=== PATIENT | female | born 1965 | race Caucasian/White ===

== ENCOUNTER 2020-07-11 17:03 | Inpatient (IN) ==
--- NOTE | 2020-07-11 17:06 | ERNOTE ---
Integumentary HPI - Narrative Date of Service: 07/11/20 - General Presenting Symptoms: other - burn Time Seen by Provider: 07/11/20 17:05 Source: patient Exam Limitations: no limitations - Immun/Allergies/Home Medications Allergies/Adverse Reactions: Allergies Allergy/AdvReac Type Severity Reaction Status Date / Time No Known Allergies Allergy Verified 02/11/20 10:31 Home Medications: HOME MEDICATIONS ascorbic acid (vitamin C) 500 mg capsule,extended release 500 mg PO DAILY 01/24/19 [Last Taken Unknown] calcium carbonate 500 mg calcium (1,250 mg) tablet 500 mg PO DAILY 01/24/19 [Last Taken Unknown] cholecalciferol (vitamin D3) 125 mcg (5,000 unit) tablet 10,000 unit PO DAILY tab 01/24/19 [Last Taken Unknown] vitamin B12 500 mcg-folic acid 400 mcg tablet 1 tab PO DAILY 01/24/19 [Last Taken Unknown] atorvastatin 20 mg tablet 20 mg PO DAILY #90 tab 10/03/19 [Last Taken Unknown] citalopram 40 mg tablet See Rx Instructions .ROUTE .COMPLEX #90 unspecified 10/03/19 [Last Taken Unknown] levothyroxine 200 mcg tablet See Rx Instructions .ROUTE .COMPLEX #90 unspecified 10/03/19 [Last Taken Unknown] - History of Present Illness Narrative: The patient is a 54 year old female who presents for motta which has been present since just [employer]. There are associated symptoms of skin blistering. The patient reports pain to bilateral feet, 9/10. There are none alleviating factors. There are aggravating factors of palpation or ambulation. Previous treatments have included: none. The past medical history includes: depression and hypothyroid. The social history is positive for current tobacco use. The patient has had no known ill contacts. Patient states she was cleaning out fryers while working at [employer] and [employer], wearing tennis shoes when hot grease spilt on both feet. Patient removed tennis shoes and socks prior to arrival. Patient unsure of last tetanus vaccine. Review of Systems - Review of Systems Constitutional: Present: no symptoms reported. Absent: recent illness, fever, fatigue EYE: Present: no symptoms reported ENT: Present: no symptoms reported. Absent: ear pain, nasal drainage, sore throat Respiratory: Present: no symptoms reported. Absent: shortness of breath, cough Cardiology: Present: no symptoms reported. Absent: chest pain Gastrointestinal/Abdominal: Present: no symptoms reported. Absent: nausea, vomiting, diarrhea Genitourinary: Present: no symptoms reported. Absent: dysuria Musculoskeletal: Present: no symptoms reported Skin: Present: other - burn All Other Systems: All systems neg except as marked Medical History (Last Reviewed 07/11/20 @ 17:19 by TAVO Callejas) Depression Onset Date: 10/16/13 trial with celexa for $ Morbid obesity Onset Date: 10/16/13 work on diet and [email or web address]. Tobacco abuse Onset Date: 10/16/13 spent 3 min. talking to her about beh. modification, reasons why she smokes, etc. Cervical malignant neoplasm Onset Date: Unknown Hypothyroidism Onset Date: 10/16/13 Surgical History: Surgical History (Last Reviewed 07/11/20 @ 17:20 by TAVO Callejas) H/O section Onset Date: Unknown x3 History of conization of cervix Onset Date: Unknown History of hysterectomy Onset Date: Unknown d/t menorrhagia History of tubal ligation Onset Date: Unknown Family History: Family History (Last Reviewed 07/11/20 @ 17:20 by TAVO Callejas) Mother Cancer breast cancer that spread to whole body Social History: (Last Reviewed 07/11/20 @ 17:20 by TAVO Callejas) Social History: Marital status: lives independently: Yes household members: spouse number of children: 3 current occupational status: unemployed current occupation: cook-unemployed current occupational exposures/hazards: Yes Highest education level completed: some college, no degree Service: No Tobacco: Smoking Status: Current every day smoker tobacco type: cigarettes Smoking cigarettes per day: 10.0 Smoking packs per day: 0.5 Alcohol: alcohol intake: current details: rare Dietary Habits: caffeine: Yes Physical Exam - Physical Exam General Appearance: Present: wd/wn, alert, moderate distress Head Exam: Present: normal inspection, no evidence of injury Eye Exam: Normal inspection: bilateral Neck: Present: normal inspection Respiratory: Present: no respiratory distress, normal breath sounds, no accessory muscle use, lungs clear Cardiovascular/Chest: Present: regular rate, rhythm, no murmur Peripheral Pulses: N=norm/S=strong/W=weak/B=bound/A=absent: Dorsalis-pedis (R): Normal, Dorsalis-pedis (L): Normal Extremity Exam: Present: extremity edema - 1+ bilateral lower extremities Neurological Exam: Present: alert, oriented, normal mood/affect, no motor/sensory deficits Skin Exam: Present: normal color, warm/dry, other - 2nd degree burn noted to right dorsal and lateral great toe extending to lateral foot with overlying blister, 2,3,4 toe with surrounding erythema with central areas that are non- blanching appearing to be 3rd degree, right lateral 5th toe extending to foot 2nd degree with blistering and areas that are blanched appearing to be 3rd degree- left foot great toe extending to medial foot 2nd degree with blistering, areas of skin that are blanched appearing to be 3rd degree, 2,3,4,5 dorsal toes left with outer areas erythema with central areas blanched appearing to be 3rd degree, right ankle posterior and lateral erythema, left ankle posterior erythema Progress - Date and Time Seen: Date and Time: 07/11/20 17:[address] [facility] burn center via email with patient's phone with consent for consult. 07/11/20 17:37 customer support consultant on burn unitAnastasia, debridement to burn wounds with deroofing of blisters, vasline gauze and bacitracin dressing to be changes daily then burn unit will follow up next week, will contact patient for outpatient follow up. 07/11/20 19:28 Areas of blister deroofed, patient tolerated procedure with medication administration. Area was cleansed with NS and dressed with Bacitracin ointment, vaseline gauze, 4x4 gauze and roll gauze. Will monitor patient to ensure pain management and ability to discharge with oral medications. 07/11/20 19:58 Patient having recurrent 10/10 pain, will administer hydrocodone and monitor for pain control to ensure patient tolerance. 07/11/20 20:27 Unable to get patient's pain managed with oral medications for discharge. Consult to [facility] burn center for further direction of care. 07/11/20 20:46 Consult with and charge burn nurse Ese, admit patient locally due to no bed availability for pain control and can consult for direction of care as needed. Daily dressing changes with bacitracin, vaseline gauze and roll gauze. Will contact patient to schedule follow up. 07/11/20 20:47 Message left for to discuss admission. 07/11/20 20:53 Consult for admission with , will admit for observation. - Vital Signs Patient's Vital Signs:: I have reviewed the patient's vital signs. - Progress/Reassessment Progress:: Improved Departure Clinical Impression: Burn of foot Qualifiers: Encounter type: initial encounter Laterality: unspecified laterality Burn degree: partial thickness (2nd degree) Qualified Code(s): T25.229A - Burn of second degree of unspecified foot, initial encounter - Departure Disposition: Still a patient Condition: Fair
[2020-07-11] MEDS ORDERED: ONDANSETRON HCL/PF 2 MG/ML VIAL IV ONE (17:07)
[2020-07-11] MEDS ORDERED: MORPHINE SULFATE 4 MG/ML SYRG IV ONE (17:07)
[2020-07-11] MEDS ORDERED: DIPHTH,PERTUSS(ACELL),TET VAC 0.5 ML VIAL IM ONE (17:08)
[2020-07-11] MEDS ORDERED: HYDROmorphone HCL 1 MG/ML DISP.SYRIN IV ONE ×2 (17:24→20:42)
[2020-07-11] MEDS ORDERED: diphenhydrAMINE HCL 50 MG/ML VIAL IV ONE (18:15)
[2020-07-11] MEDS ORDERED: KETAMINE HCL 50 MG/ML VIAL ONE (18:48)
[2020-07-11] MEDS: KETAMINE HCL 50 MG/ML VIAL IV ONE ×3 (18:54→19:10)
[2020-07-11] MEDS ORDERED: KETAMINE HCL 50 MG/ML VIAL IV ONE ×2 (19:51→19:52)
[2020-07-11] MEDS ORDERED: HYDROcodone/ACETAMINOPHEN 1 EACH TABLET PO ONE (19:51)
[2020-07-11] MEDS ORDERED: KETOROLAC TROMETHAMINE 30 MG/ML VIAL IV ONE (20:53)
[2020-07-11] MEDS ORDERED: HYDROmorphone HCL 2 MG/ML VIAL IV PRN (21:19)
[2020-07-12] MEDS: ONDANSETRON HCL/PF 2 MG/ML VIAL IV PRN ×2 (07:37→14:14)
[2020-07-12] MEDS ORDERED: HYDROmorphone HCL 2 MG TABLET PO PRN (11:16)
[2020-07-12] MEDS ORDERED: IBUPROFEN 400 MG TABLET PO PRN (11:19)
[2020-07-12] MEDS: CITALOPRAM HYDROBROMIDE 20 MG TABLET PO SCH (11:45)
[2020-07-12] MEDS: LEVOTHYROXINE SODIUM 100 MCG TABLET PO SCH (11:45)
[2020-07-12] MEDS: CHOLECALCIFEROL 5,000 UNIT TABLET PO SCH (11:45)
[2020-07-12] MEDS: HYDROmorphone HCL 2 MG TABLET PO SCH ×2 (11:45→19:23)
[2020-07-12] MEDS ORDERED: ONDANSETRON 4 MG TAB.RAPDIS PO ONE (12:43)
[2020-07-12] MEDS: BACITRACIN ZINC 30 APPL TUBE TP SCH (16:29)
--- NOTE | 2020-07-12 19:25 | HP ---
Chief Complaint - Chief Complaint Date of Service: 07/12/20 Time of Service: 09:20 Chief Complaint: Partial-thickness motta to the feet. Severe pain from motta. History of Present Illness: The patient is a 54 year old female who presents for motta which has been present since just [employer]. There are associated symptoms of skin blistering. The patient reports pain to bilateral feet, 9/10. There are none alleviating factors. There are aggravating factors of palpation or ambulation. Previous treatments have included: none. The past medical history includes: depression and hypothyroid. The social history is positive for current tobacco use. The patient has had no known ill contacts. 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 Patient removed tennis shoes and socks prior to arrival. Patient unsure of last tetanus vaccine. At the time of my exam she is much more comfortable rating her pain at a 4 or 5 out of 10. I will change her over to oral pain medication today. I attempted to do that and she had a large emesis that was Hemoccult positive. We return to IV pain medicines and will try again tomorrow. Medical History (Last Reviewed 07/11/20 @ 17:19 by TAVO Callejas) Depression Onset Date: 10/16/13 trial with celexa for $ Morbid obesity Onset Date: 10/16/13 work on diet and [employer]. Tobacco abuse Onset Date: 10/16/13 spent 3 min. talking to her about beh. modification, reasons why she smokes, etc. Cervical malignant neoplasm Onset Date: Unknown Hypothyroidism Onset Date: 10/16/13 Surgical History: Surgical History (Last Reviewed 07/11/20 @ 17:20 by TAVO Callejas) H/O section Onset Date: Unknown x3 History of conization of cervix Onset Date: Unknown History of hysterectomy Onset Date: Unknown d/t menorrhagia History of tubal ligation Onset Date: Unknown Family History: Family History (Last Reviewed 07/11/20 @ 17:20 by TAVO Callejas) Mother Cancer breast cancer that spread to whole body Social History: (Last Reviewed 07/11/20 @ 17:20 by TAVO Callejas) Social History: Marital status: lives independently: Yes household members: spouse number of children: 3 current occupational status: unemployed current occupation: cook-unemployed current occupational exposures/hazards: Yes Highest education level completed: some college, no degree Service: No Tobacco: Smoking Status: Current every day smoker tobacco type: cigarettes Smoking cigarettes per day: 10.0 Smoking packs per day: 0.5 Alcohol: alcohol intake: current details: rare Dietary Habits: caffeine: Yes Review Of Systems (GEN) - Review of Systems Generalized/Overall Review: Present: No Symptoms Reported EENTM: Present: No Symptoms Reported Respiratory: Present: No Symptoms Reported Cardiac: Present: No Symptoms Reported Abdominal: Present: No Symptoms Reported Genitourinary: Present: No Symptoms Reported Musculoskeletal: Present: No Symptoms Reported Neurological: Present: No Symptoms Reported Skin: Present: Other - Partial-thickness motta to both feet Endocrine: Present: No Symptoms Reported Immunizations: IMMUNIZATION HX Immunizations Up to Date No History of Influenza Vaccine No Hx Pneumococcal Vaccination No Allergies/Adverse Reactions: Allergies Allergy/AdvReac Type Severity Reaction Status Date / Time No Known Allergies Allergy Verified 02/11/20 10:31 Home Medications: HOME MEDICATIONS ascorbic acid (vitamin C) 500 mg capsule,extended release 500 mg PO DAILY 01/24/19 [Last Taken Unknown] calcium carbonate 500 mg calcium (1,250 mg) tablet 500 mg PO DAILY 01/24/19 [Last Taken Unknown] cholecalciferol (vitamin D3) 125 mcg (5,000 unit) tablet 10,000 unit PO DAILY tab 01/24/19 [Last Taken Unknown] vitamin B12 500 mcg-folic acid 400 mcg tablet 1 tab PO DAILY 01/24/19 [Last Taken Unknown] atorvastatin 20 mg tablet 20 mg PO DAILY #90 tab 10/03/19 [Last Taken Unknown] citalopram 40 mg tablet See Rx Instructions .ROUTE .COMPLEX #90 unspecified 10/03/19 [Last Taken Unknown] levothyroxine 200 mcg tablet See Rx Instructions .ROUTE .COMPLEX #90 unspecified 10/03/19 [Last Taken Unknown] Zinc mg PO DAILY 07/11/20 [Last Taken Unknown] Exam - Exam Vital Signs: Vital Signs - Last Taken Temp 36.3 C 07/12/20 17:50 Pulse 73 07/12/20 17:50 Resp 18 07/12/20 17:50 BP 129/73 07/12/20 17:50 Pulse Ox 96 11/14/20 17:50 Constitutional: Present: Alert, Oriented x3, Cooperative, Well developed, Mild distress ENT Exam: Present: normal ENT inspection, hearing grossly normal, pharynx normal, TMs normal Eye Exam: bilateral eye: normal inspection, PERRL, EOMI Neck: Present: non-tender, full range of motion, supple Back Exam: Present: normal inspection, no CVA tenderness, no vertebral tend erness Breasts: Present: Exam deferred Respiratory: Present: chest non-tender, lungs clear, normal breath sounds Cardiovascular/Chest: Present: normal peripheral pulses, regular rate, rhythm, no chest tenderness Peripheral Pulses: carotid (R): 2+, carotid (L): 2+, radial (R): 2+, radial (L): 2+ Abdomen: Present: Normal bowel sounds, soft, nontender /Rectal: Present: Exam deferred Extremity: Present: normal range of motion, non-tender, normal inspection Skin Exam: Present: normal color, other - Partial-thickness motta first and second-degree and possibly some mild third-degree to the feet. Neurologic: Present: layer out plate glass II-XII nml as tested, normal cerebellar test, no motor/sensory deficits, alert, normal mood/affect Appearance: Present: appropriate appearance, appropriate insight, neat, no memory impairment Eye contact: Present: cooperative, good eye contact, normal speech Thoughts: Present: normal thought pattern, no apparent hallucination Diagnostic Studies: Abnormal Lab Results 07/12/20 Range/Units 12:55 Gastric Occult Blood Positive H Laboratory Results Gastric Occult Blood Positive H 07/12/20 12:55 SARS-CoV-2 (PCR) Not detected (NotDetected) 07/11/20 20:44 Assessment/Plan - Narrative Narrative: 1. Check CBC and CMP tomorrow morning 2. Start on Pepcid 40 mg twice daily 3. Start Carafate 1 g 4 times daily 15 minutes before meals and at bedtime 4. Withhold oral pain meds today and continue with IV pain meds. I will retry the oral tomorrow morning. 5. Admit to acute admission status - Assessment/Plan (1) Nausea and vomiting Problem: Acute Qualifiers: Vomiting type: hematemesis Qualified Code(s): K92.0 - Hematemesis (2) Burn of foot Problem: Acute Qualifiers: Encounter type: initial encounter Laterality: unspecified laterality Burn degree: partial thickness (2nd degree) Qualified Code(s): T25.229A - Burn of second degree of unspecified foot, initial encounter (3) Osteoarthritis of knees, bilateral Problem: Chronic Qualifiers: Osteoarthritis type: primary
[2020-07-12] MEDS: FAMOTIDINE 20 MG TABLET PO SCH (21:02)
[2020-07-12] MEDS: SUCRALFATE 1 G TABLET PO SCH (21:02)
[2020-07-13] MEDS: ONDANSETRON HCL/PF 2 MG/ML VIAL IV PRN ×2 (02:32→08:38)
[2020-07-13] MEDS: HYDROmorphone HCL 2 MG TABLET PO SCH ×2 (02:34→12:23)
[2020-07-13] MEDS: LEVOTHYROXINE SODIUM 100 MCG TABLET PO SCH (07:01)
[2020-07-13 07:05] LABS: Hematocrit 41.6 % (37.0-47.0); Mean Cell Volume 101.5 fl (78-100); Mean Corpuscular Hemoglobin 31.7 pg (27-31); Mean Corpuscular Hgb Conc 31.3 g/dl (32-36); Mean Platelet Volume 9.8 fl (8-12.5); Neutrophil % 70.9 % (42-75.0); Platelet Count 218 K/mm3 (150-450); Red Cell Distribution Width 12.4 % (11.5-14.0); White Blood Count 7.1 K/mm3 (4.0-10.5)
[2020-07-13] MEDS: SUCRALFATE 1 G TABLET PO SCH ×3 (07:05→17:22)
[2020-07-13 07:30] LABS: Albumin * 3.2 gm/dl (3.4-5.0); Anion Gap 9.9 mmol/L (6.8-13.8); BUN/Creatinine Ratio 23.5 (9.0-21.6); Bilirubin, Total 0.4 mg/dL (0.0-1.1); Ca. Corrected For Albumin 9.2 mg/dL (8.4-10.2); Calcium * 8.9 mg/dL (7.9-10.9); Carbon Dioxide 30.2 mmol/L (24-32.6); Potassium 4.1 mmol/L (3.4-4.6); Total Protein 6.2 gm/dL (6.2-8.2)
[2020-07-13] MEDS ORDERED: ROSUVASTATIN CALCIUM 10 MG TABLET PO SCH (09:00)
[2020-07-13] MEDS ORDERED: ACETAMINOPHEN 500 MG TABLET PO PRN (09:14)
[2020-07-13] MEDS: CITALOPRAM HYDROBROMIDE 20 MG TABLET PO SCH (09:20)
[2020-07-13] MEDS: CHOLECALCIFEROL 5,000 UNIT TABLET PO SCH (09:20)
[2020-07-13] MEDS: FAMOTIDINE 20 MG TABLET PO SCH (09:21)
[2020-07-13] MEDS: BACITRACIN ZINC 30 APPL TUBE TP SCH (10:33)
--- NOTE | 2020-07-13 16:29 | DS ---
(1) Burn of foot Problem: Acute Qualifiers: Encounter type: initial encounter Laterality: unspecified laterality Burn degree: full thickness (3rd degree) Qualified Code(s): T25.329A - Burn of third degree of unspecified foot, initial encounter (2) Nausea and vomiting Problem: Acute Qualifiers: Vomiting type: hematemesis Qualified Code(s): K92.0 - Hematemesis (3) Osteoarthritis of knees, bilateral Problem: Chronic Qualifiers: Osteoarthritis type: primary Date of Discharge:: 07/13/20 Hospital Course: The patient is a 54 year old female who presents for motta which has been present since just [employer]. There are associated symptoms of skin blistering. The patient reports pain to bilateral feet, 9/10. There are none alleviating factors. There are aggravating factors of palpation or ambulation. Previous treatments have included: none. The past medical history includes: depression and hypothyroid. The social history is positive for current tobacco use. The patient has had no known ill contacts. 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 Patient removed tennis shoes and socks prior to arrival. Patient unsure of last tetanus vaccine. At the time of my exam she is much more comfortable rating her pain at a 4 or 5 out of 10. I will change her over to oral pain medication today. I attempted to do that and she had a large emesis that was Hemoccult positive. We return to IV pain medicines and will try again tomorrow. Today's vital signs show temperature 36.5, BP is 114/70, pulse is 64 and regular, respiratory 18 and unlabored, and O2 sat is 93% on 1 L nasal cannula. She has been on room air all day and keeping saturations in the mid 90s. She did have an episode of emesis yesterday and was Hemoccult positive. I started her on Pepcid and sucralfate which she is tolerating well. She has not had any further vomiting today and has tolerated her meals well. Her laboratory work shows CBC is normal and unchanged. The rest of her lab is also normal. Procedures Performed: none Results and Findings: Lab Pending Results 07/11/20 20:44: SARS-CoV-2 (PCR) Not detected 07/12/20 12:55: Gastric Occult Blood Positive H 07/13/20 06:45: WBC 7.1, RBC 4.10 L, Hgb 13.0, Hct 41.6, MCV 101.5 H, MCH 31.7 H, MCHC 31.3 L, RDW 12.4, Plt Count 218, MPV 9.8, Immature Gran % (Auto) 0.30, Immature Gran # (Auto) 0.02, Neutrophils % 70.9, Lymphocytes % 19.6 L, Monocytes % 7.7, Eosinophils % 1.1, Basophils % 0.4, Nucleated RBC % 0.0, Neutrophils # 5.0, Lymphocytes # 1.38 L, Monocytes # 0.5, Eosinophils # 0.1, Absolute Basophils 0.0 07/13/20 06:45: Sodium 142, Plasma Sodium 142, Potassium 4.1, Chloride 106, Carbon Dioxide 30.2, Anion Gap 9.9, BUN 16, Creatinine 0.68, Est GFR (Non-Af Amer) 95, BUN/Creatinine Ratio 23.5 H, Random Glucose 105, Calcium 8.9, Calcium Adj for Albumin 9.2, Total Bilirubin 0.4, AST 18, ALT 20, Alkaline Phosphatase 72, Total Protein 6.2, Albumin 3.2 L Discharge Location: Home Disposition: Home self-care Condition: Fair Face to Face Encounter completed per [facility] Guidelines: No Discharge Activity: Activity as tolerated, Other - Off work for the next 2 weeks Discharge Diet: General/regular food Referrals: Armando Collier DO [Primary Care Provider] - Additional Patient Instructions (free text): She is to see her PCP in 3 days for a dressing change. She should take the Dilaudid every 8 hours on a regular schedule and every 4 as needed breakthrough pain Complete Home Medications List: Complete Home Medication List: ascorbic acid (vitamin C) 500 mg capsule,extended release 500 mg PO DAILY 01/24/19 calcium carbonate 500 mg calcium (1,250 mg) tablet 500 mg PO DAILY 01/24/19 cholecalciferol (vitamin D3) 125 mcg (5,000 unit) tablet 10,000 unit PO DAILY tab 01/24/19 vitamin B12 500 mcg-folic acid 400 mcg tablet 1 tab PO DAILY 01/24/19 atorvastatin 20 mg tablet 20 mg PO DAILY #90 tab 10/03/19 citalopram 40 mg tablet See Rx Instructions .ROUTE .COMPLEX #90 unspecified 10/03/19 levothyroxine 200 mcg tablet See Rx Instructions .ROUTE .COMPLEX #90 unspecified 10/03/19 Zinc mg PO DAILY 07/11/20 Acetaminophen [Tylenol] 1,000 mg PO Q6H PRN tablet 07/13/20 Bacitracin Zinc [Bacitracin] 1 appl TP DAILY tube 07/13/20 Famotidine [Heartburn Prevention] 20 mg PO BID #60 tab 07/13/20 HYDROmorphone HCL [Dilaudid] 2 mg PO Q4H PRN #45 tab 07/13/20 HYDROmorphone HCL [Dilaudid] 2 mg PO Q8H #45 tab 07/13/20 Sucralfate [Carafate] 1 g PO ACHS #60 tab 07/13/20
[2020-07-13 17:58] VITALS: BP 103/58
== END 2020-07-13 18:42 | disposition home or self-care (01) | DRG 934 ==
LOC: ER 17:03 → MS 17:03 → OBSVTOIN 20:59 → MS 22:30
PROVIDERS: ADMIT Family Medicine; ATTEND Family Medicine